=== PATIENT | female | born 1990 | race Caucasian/White ===

== ENCOUNTER → 2019-12-07 | Outpatient (CLI) | payer OTHER | LOC: COL.RAD 14:05 | DX: M25.551 Pain in right hip (principal); M79.604 Pain in right leg | CPT/HCPCS: G0260; J3301 ==

== ENCOUNTER → 2019-12-26 | Outpatient (CLI) | payer OTHER | LOC: MHCPAIN 09:33 | DX: M47.812 Spondylosis without myelopathy or radiculopathy, cervical region (principal); R51 Headache | CPT/HCPCS: G0463 ==